=== PATIENT | female | born 1960 | race Caucasian/White ===

== ENCOUNTER → 2021-04-25 | Outpatient (CLI) | payer MEDICARE, OTHER | LOC: KOH-I 09:23 | DX: M51.36 Other intervertebral disc degeneration, lumbar region (principal); M48.061 Spinal stenosis, lumbar region without neurogenic claudication | CPT/HCPCS: 72148 ==

== ENCOUNTER 2022-01-23 18:10 | Emergency (ER) | payer MEDICARE, OTHER ==
[2022-01-23] MEDS ORDERED: PERCOCET 5-3251 EACH PO (21:01)
[2022-01-23] MEDS ORDERED: ZOFRAN ODT 4 MG4 MG PO (21:01)
== END 2022-01-23 21:12 | disposition home or self-care (01) ==
LOC: ER1 18:10
DX: S52.572A Other intraarticular fracture of lower end of left radius, initial encounter for closed fracture (principal); S46.812A Strain of other muscles, fascia and tendons at shoulder and upper arm level, left arm, initial encounter; S46.912A Strain of unspecified muscle, fascia and tendon at shoulder and upper arm level, left arm, initial encounter; Z91.81 History of falling; I48.91 Unspecified atrial fibrillation; W19.XXXA Unspecified fall, initial encounter
CPT/HCPCS: 29125; 73030; 73080; 73110; 96374; 96375; 99283; J2270; J2405

== ENCOUNTER → 2022-04-24 | Outpatient (CLI) | payer MEDICARE, OTHER ==
[~2022-04-24] MED LIST: PERCOCET 5-3251 EACH PO; ZOFRAN ODT 4 MG4 MG PO
== END ==
LOC: EMI 08:49
DX: S66.212A Strain of extensor muscle, fascia and tendon of left thumb at wrist and hand level, initial encounter (principal); X58.XXXA Exposure to other specified factors, initial encounter
CPT/HCPCS: 73221

== ENCOUNTER → 2022-05-26 | Outpatient (CLI) | payer MEDICARE, OTHER ==
[~2022-05-26] MED LIST changes: +CARDIZEM LA180 MG PO; +ELIQUIS 5 MG TAB5 MG PO; +FLOMAX 0.4 MG0.4 MG PO; +LOPRESSOR50 MG PO; +PERCOCET 5/325 T1 EA PO; +ROBAXIN 750 MG750 MG PO; +VITAMIN D310 MC2 PO; +ZOFRAN 4 MG TAB4 MG PO
[2022-05-26 11:35] LABS: HEMOGLOBIN 14.1 gm/dl (12.3-15.3); RED BLOOD COUNT 4.76 M/UL (4.00-5.10); WHITE BLOOD COUNT 7.1 K/UL (4.5-11.0)
[2022-05-26 12:03] LABS: BUN/CREATININE RATIO 22 (0-10)
== END ==
LOC: OPSV2 10:00
PROVIDERS: Orthopaedic Surgery
DX: Z01.818 Encounter for other preprocedural examination (principal); S66.012A Strain of long flexor muscle, fascia and tendon of left thumb at wrist and hand level, initial encounter
CPT/HCPCS: 36415; 80048; 85027; 93005

== ENCOUNTER → 2022-06-01 | Day surgery (SDC) | payer MEDICARE, OTHER ==
[~2022-06-01] VITALS: Ht 154.9 cm; Wt 78.9 kg
== END | disposition home or self-care (01) ==
LOC: OR 07:38
DX: M66.28 Spontaneous rupture of extensor tendons, other site (principal); N28.9 Disorder of kidney and ureter, unspecified; I48.0 Paroxysmal atrial fibrillation; R07.89 Other chest pain; K21.9 Gastro-esophageal reflux disease without esophagitis; I10 Essential (primary) hypertension; Z88.2 Allergy status to sulfonamides; Z91.014 Allergy to mammalian meats; Z91.048 Other nonmedicinal substance allergy status; Z79.01 Long term (current) use of anticoagulants; Z79.899 Other long term (current) drug therapy
CPT/HCPCS: 84484; 93005; C1713; J0690; J1100; J1170; J2001; J2250; J2405; J2550; J2704; J3010